=== PATIENT | female | born 1995 | race Caucasian/White ===

== ENCOUNTER 2016-10-10 13:05 | Emergency (ER) | payer OTHER ==
--- NOTE | 2016-10-10 13:49 | DIAGNOSTIC IMAGING REPORT ---
PROCEDURE: XR CHEST 2 VIEW INDICATION: CHEST PAIN TECHNIQUE: PA and lateral views. COMPARISON: None. FINDINGS: Lungs are clear. Heart and mediastinum are normal. Thorax is normal. IMPRESSION: 1. Negative chest.
--- NOTE | 2016-10-10 14:39 | ED NURSING NOTES ---
Clinical Report - Nurses [facility] [place] [address] 10/10/2016 13:09 Patient: AZALIA SHARIF TRIAGE Triage time 13:15 Oct 10 2016. Acuity: LEVEL 3. Chief Complaint: CHEST PAIN and DISCOMFORT. Alert. DANA COMA SCORE: [place] Coma Scale: 15- eyes open spontaneously (4); best verbal response- oriented x 4 (5); best motor response- obeys commands (6). --13:29 Florencio Rivas R.N. 13:18 10/10/16. BP: 121/64. HR: 84. RR: 16. O2 saturation: 96% on room air. Temp: 99.4 F. Pain level now: 01/09. Additional comments: (L) Side of the chest. --13:29 Florencio Rivas R.N. Weight: 70.3 kg stated. Height/Length: 64 inches Per Patient. BMI: 26.6. --13:18 Florencio Rivas R.N. Medications Ibuprofen Oral, as needed. Tylenol Oral, as needed. --13:24 Florencio Rivas R.N. Allergies No Known Drug Allergy. --13:24 Florencio Rivas R.N. Medication/allergy information source: the patient. --13:29 Florencio Rivas R.N. History Arrived by private vehicle. Historian: patient. Accompanied by family. Primary physician (Leilani Martin). ( Chest Pain located on the (L) side of the chest. Pain is described as intermittent and worse when she tries to lift something.). This started today. Onset. (about 6 hours ago). PAST MEDICAL HX: Negative. Immunizations: up-to-date. Last normal menstrual period was 1 week ago. SOCIAL HX: No infectious disease exposure. ABUSE ASSESSMENT: No report of abuse. FALL RISK ASSESSMENT: Fall risk assessment completed. No fall risk identified. NUTRITIONAL RISK ASSESSMENT: The nutritional risk assessment revealed no deficiencies. FUNCTIONAL ASSESSMENT: Functional assessment: no impairments noted. LEARNING NEEDS ASSESSMENT: The learning needs assessment revealed no barriers. SKIN INTEGRITY ASSESSMENT: Skin integrity risk assessment completed. No skin integrity risk identified. --13:29 Florencio Rivas R.N. SOCIAL HX: History of occasional drug use: marijuana. No alcohol use. --13:33 Florencio Rvias R.N. SOCIAL HX: Never smoker. Alcohol use; consumes one liquor. (about once every two months). --14:30 Florencio Rivas R.N. PROBLEMS: Migraine Headache. --13:32 Florencio Rivas R.N. ADDITIONAL SURGERIES: . --13:25 Florencio Rivas R.N. Interventions ID band on patient. To treatment room. --13:29 Florencio Rivas R.N. PHYSICAL ASSESSMENT Ambulatory to room. GENERAL / NEURO / PSYCH: Alert. Oriented X 4. HEENT: Mucous membranes are pink. RESPIRATORY: Respirations not labored. CVS: Normal sinus rhythm noted. GI / : Abdomen soft. EXTREMITIES: No lower extremity edema. SKIN: Skin is warm and dry. Normal skin turgor. --13:31 Florencio Rivas R.N. NURSING PROGRESS NOTES Patient gowned. Reassurance given. Patient identifiers checked. Call light placed in reach. Side rails up x 1. Bed placed in lowest position. Brakes of bed on. Patient ready for evaluation- chart flagged and PA notified. --13:32 Florencio Rivas R.N. EKG time: (13:18). EKG was performed by a tech and shown to the PA. --13:41 Tonie Yeung 13:25. ( POC urine preg--neg). --13:57 Florencio Rivas R.N. 13:30. Patient walked to radiology with tech. --13:58 Florencio Rivas R.N. 13:40. Patient walked back to ED from radiology with tech. --13:59 Florencio Rivas R.N. 14:30 10/10/16. BP: 108/70. HR: 80. RR: 16. O2 saturation: 99% on room air. --14:36 Florencio Rivas R.N. 14:43 10/10/2016 Motrin PO 800 mg given. Allergies verified and confirmed 5 rights. --14:43 Bakari Anderson R.N. DISPOSITION / DISCHARGE 14:46 10/10/16. Condition at departure: improved. The goals identified in the patient's plan of care were met. No learning barriers present. Discharge instructions provided and reviewed with the patient and spouse. Reviewed warnings. Reviewed medication(s). Treatments reviewed. Patient and spouse verbalized understanding. Written instructions provided in Japanese. The patient was discharged by the physician assistant professor of archaeology. She was discharged home and accompanied by family. She left the Emergency Department ambulatory and via private vehicle. Family member driving. FALL RISK ASSESSMENT: Fall risk assessment completed. No fall risk identified. --14:46 Bakari Anderson R.N. 14:45 10/10/16. BP: 112/72. HR: 72. RR: 14. O2 saturation: 99% on room air. Temp: 98.1 F (oral). --14:46 Bakari Anderson R.N. 14:46 10/10/16. Departure time: 14:46. --14:46 Bakari Anderson R.N. Locked/Released at 10/10/2016 14:48 by Bakari Anderson R.N.
--- NOTE | 2016-10-10 14:39 | ED ORDER SUMMARY ---
..... Patient: AZALIA SHARIF OrderSheet [facility] VisitID: [id number] [place] [address] 21y, F Registration Date/Time: 10/10/2016 ORDER SHEET Weight: 70.3 kg (stated) Allergies: No Known Drug Allergy GENERAL ORDERS: EKG - ER Stat (13:18 10/10/2016 Aime R.N. verbal order read back to Tiffanie LYLE) (13:18 JRomanelli R.N.) Chest 2V Urgent (13:35 10/10/2016 EKoroleva P.A.-C) (Ack 13:36 Nitishrkristian) (14:03 omanelli R.N.) POC - Urine hCG (13:35 10/10/2016 EKoroleva P.A.-C) (Ack 13:36 Felicity) (14:03 omanelli R.N.) MEDICATION ORDERS: Motrin PO 800 mg (NOW) (14:31 10/10/2016 EKoroleva P.A.-C) (Ack 14:41 BRIDGEToardley R.N.) (14:43 JBoardley R.N.) IV FLUIDS: ORDER SHEET NOTES: [Electronically signed by Bakari Anderson R.N. (14:48 10/10/2016)] [Electronically signed by Lenka Alejandro P.A.-C (16:09 10/10/2016)] [Electronically locked/signed by Bakari Anderson R.N. (14:48 10/10/2016)]
--- NOTE | 2016-10-10 14:39 | ED NURSING NOTES ---
Clinical Report - Nurses [facility] [place] [address] 10/10/2016 13:09 Patient: AZALIA SHARIF TRIAGE Triage time 13:15 Oct 10 2016. Acuity: LEVEL 3. Chief Complaint: CHEST PAIN and DISCOMFORT. Alert. DANA COMA SCORE: [place] Coma Scale: 15- eyes open spontaneously (4); best verbal response- oriented x 4 (5); best motor response- obeys commands (6). --13:29 Florencio Rivas R.N. 13:18 10/10/16. BP: 121/64. HR: 84. RR: 16. O2 saturation: 96% on room air. Temp: 99.4 F. Pain level now: 01/09. Additional comments: (L) Side of the chest. --13:29 Florencio Rivas R.N. Weight: 70.3 kg stated. Height/Length: 64 inches Per Patient. BMI: 26.6. --13:18 Florencio Rivas R.N. Medications Ibuprofen Oral, as needed. Tylenol Oral, as needed. --13:24 Florencio Rivas R.N. Allergies No Known Drug Allergy. --13:24 Florencio Rivas R.N. Medication/allergy information source: the patient. --13:29 Florencio Rivas R.N. History Arrived by private vehicle. Historian: patient. Accompanied by family. Primary physician (Leilani Martin). ( Chest Pain located on the (L) side of the chest. Pain is described as intermittent and worse when she tries to lift something.). This started today. Onset. (about 6 hours ago). PAST MEDICAL HX: Negative. Immunizations: up-to-date. Last normal menstrual period was 1 week ago. SOCIAL HX: No infectious disease exposure. ABUSE ASSESSMENT: No report of abuse. FALL RISK ASSESSMENT: Fall risk assessment completed. No fall risk identified. NUTRITIONAL RISK ASSESSMENT: The nutritional risk assessment revealed no deficiencies. FUNCTIONAL ASSESSMENT: Functional assessment: no impairments noted. LEARNING NEEDS ASSESSMENT: The learning needs assessment revealed no barriers. SKIN INTEGRITY ASSESSMENT: Skin integrity risk assessment completed. No skin integrity risk identified. --13:29 Florencio Rivas R.N. SOCIAL HX: History of occasional drug use: marijuana. No alcohol use. --13:33 Florencio Rivas R.N. SOCIAL HX: Never smoker. Alcohol use; consumes one liquor. (about once every two months). --14:30 Florencio Rivas R.N. PROBLEMS: Migraine Headache. --13:32 Florencio Rivas R.N. ADDITIONAL SURGERIES: . --13:25 Florencio Rivas R.N. Interventions ID band on patient. To treatment room. --13:29 Florencio Rivas R.N. PHYSICAL ASSESSMENT Ambulatory to room. GENERAL / NEURO / PSYCH: Alert. Oriented X 4. HEENT: Mucous membranes are pink. RESPIRATORY: Respirations not labored. CVS: Normal sinus rhythm noted. GI / : Abdomen soft. EXTREMITIES: No lower extremity edema. SKIN: Skin is warm and dry. Normal skin turgor. --13:31 Florencio Rivas R.N. NURSING PROGRESS NOTES Patient gowned. Reassurance given. Patient identifiers checked. Call light placed in reach. Side rails up x 1. Bed placed in lowest position. Brakes of bed on. Patient ready for evaluation- chart flagged and PA notified. --13:32 Florencio Rivas R.N. EKG time: (13:18). EKG was performed by a tech and shown to the PA. --13:41 Tonie Yeung 13:25. ( POC urine preg--neg). --13:57 Florencio Rivas R.N. 13:30. Patient walked to radiology with tech. --13:58 Florencio Rivas R.N. 13:40. Patient walked back to ED from radiology with tech. --13:59 Florencio Rivas R.N. 14:30 10/10/16. BP: 108/70. HR: 80. RR: 16. O2 saturation: 99% on room air. --14:36 Florencio Rivas R.N. 14:43 10/10/2016 Motrin PO 800 mg given. Allergies verified and confirmed 5 rights. --14:43 Bakari Anderson R.N. DISPOSITION / DISCHARGE 14:46 10/10/16. Condition at departure: improved. The goals identified in the patient's plan of care were met. No learning barriers present. Discharge instructions provided and reviewed with the patient and spouse. Reviewed warnings. Reviewed medication(s). Treatments reviewed. Patient and spouse verbalized understanding. Written instructions provided in Haitian. The patient was discharged by the physician car rental sales assistant. She was discharged home and accompanied by family. She left the Emergency Department ambulatory and via private vehicle. Family member driving. FALL RISK ASSESSMENT: Fall risk assessment completed. No fall risk identified. --14:46 Bakari Anderson R.N. 14:45 10/10/16. BP: 112/72. HR: 72. RR: 14. O2 saturation: 99% on room air. Temp: 98.1 F (oral). --14:46 Bakari Anderson R.N. 14:46 10/10/16. Departure time: 14:46. --14:46 Bakari Anderson R.N. Locked/Released at 10/10/2016 14:48 by Bakari Anderson R.N.
--- NOTE | 2016-10-10 14:39 | ED CLINICAL REPORT ---
Clinical Report - Physicians/Mid Levels [facility] [address] [place] [address] 10/10/2016 13:09 Patient: AZALIA SHARIF Time Seen: 13:34 Oct 10 2016. Arrived- By private vehicle. Historian- patient. HISTORY OF PRESENT ILLNESS Chief Complaint: CHEST PAIN. It is described as located in the central chest area. This started 7 am after picking up her kid and is still present. No nausea or difficulty breathing. (Patient reports central pain, Worse with any movement, especially leaning forward. Denies any fevers or chills or cough. Reports worse with movement of her left arm. Denies current . Patient is 11 months . Denies recent illness. Denies any nausea or vomiting. Denies history of similar pain.). Similar symptoms previously: None. Recent medical care: Not recently seen/assessed. REVIEW OF SYSTEMS No chills, cough, pedal edema, sore throat or abdominal pain. All systems otherwise negative, except as recorded above. PAST HISTORY Problems: Migraine Headache. Additional Surgeries: . Medications: Ibuprofen Oral, as needed. Tylenol Oral, as needed. Allergies: No Known Drug Allergy. SOCIAL HISTORY Never smoker. No alcohol use. ADDITIONAL NOTES The nursing notes have been reviewed. PHYSICAL EXAM Vital Signs: 10/10/2016 13:18 BP: 121/64. HR: 84. RR: 16. O2 saturation: 96%. Temp: 99.4 F. Pain level now: 7/10. Appearance: Alert. Eyes: Eyes normal inspection. ENT: Pharynx normal. Neck: Normal inspection. CVS: Normal heart rate and rhythm. Heart sounds normal. Pulses normal. No cardiac murmur. Respiratory: No respiratory distress. Breath sounds normal. No accessory muscle use or chest pain reproduced on physical exam. Abdomen: Soft and nontender. Bowel sounds normal. No abdominal tenderness. The bowel sounds are not abnormal. Skin: Skin warm. Normal skin color. Neuro: Oriented X 3. LABS, X-RAYS, AND EKG EKG: EKG time: (1318). No acute process. No acute ischemia. Normal EKG. Rate: 73. Normal P waves. Normal JADYN. Normal QRS complex. Normal axis. Normal ST and T waves and QT. The study has been interpreted contemporaneously. The study has been independently viewed by me. The EKG appears to be a good tracing. Chest X-ray: (IMPRESSION: 1. Negative chest. Electronically Final signed by:Usman Barron MD 10/10/2016 1:49:10 PM). PROGRESS AND PROCEDURES Course of Care: Patient here in the ER stable. PERC/ Wells as well as criteria are negative. Patient with no shortness of breath. Pain reproducible. Very stable. No lower extremity swelling. No recent illness. 10/10/2016 14:45 BP: 112/72. HR: 72. RR: 14. O2 saturation: 99%. Temp: 98.1 F. Patient is stable. Physical exam findings are improved. Symptoms better. Patient/family counseled. Differential Diagnosis: I considered muscle strain, pleurisy, intercostal neuritis, myocardial infarction, intermediate coronary syndrome, aortic dissection, pulmonary embolism and pneumonia as a possible cause of chest pain in this patient. This is a partial list of diagnoses considered. Disposition: Discharged. Condition: good. CLINICAL IMPRESSION Atypical chest pain Chest wall pain INSTRUCTIONS Avoid stimulants (such as cigarettes, coffee, cold medicines, sinus medicines, street drugs). Warnings: Further evaluation is necessary. Prescription Medications: Ibuprofen 800 mg tablets: take 1 tablet orally for 3 days, as needed for pain. Dispense fifteen (15). No refill. Follow-up: Follow up with your doctor in three days. (Electronically signed by Lenka Alejandro P.A.-C 10/10/2016 16:09)
--- NOTE | 2016-10-10 14:39 | ED ORDER SUMMARY ---
..... Patient: AZALIA SHARIF OrderSheet [facility] VisitID: [id number] [place] [address] 21y, F Registration Date/Time: 10/10/2016 ORDER SHEET Weight: 70.3 kg (stated) Allergies: No Known Drug Allergy GENERAL ORDERS: EKG - ER Stat (13:18 10/10/2016 Aime R.N. verbal order read back to Tiffanie LYLE) (13:18 JRomanelli R.N.) Chest 2V Urgent (13:35 10/10/2016 EKoroleva P.A.-C) (Ack 13:36 Nitishrkristian) (14:03 omanelli R.N.) POC - Urine hCG (13:35 10/10/2016 EKoroleva P.A.-C) (Ack 13:36 Felicity) (14:03 omanelli R.N.) MEDICATION ORDERS: Motrin PO 800 mg (NOW) (14:31 10/10/2016 EKoroleva P.A.-C) (Ack 14:41 BRIDGEToardley R.N.) (14:43 JBoardley R.N.) IV FLUIDS: ORDER SHEET NOTES: [Electronically signed by Bakari Anderson R.N. (14:48 10/10/2016)] [Electronically signed by Lenka Alejandro P.A.-C (16:09 10/10/2016)] [Electronically locked/signed by Bakari Anderson R.N. (14:48 10/10/2016)]
--- NOTE | 2016-10-10 16:09 | ED MED RECONCILIATION SUMMARY ---
Patient: AZALIA SHARIF Medication Reconciliation Report [facility] VisitID: [id number] [address] [place] [address] 21y, F Registration Date/Time: 10/10/2016 Weight: 70.3 kg Height/Length: 64 in. BMI: 26.6 ALLERGIES: No Known Drug Allergy The patient's Home Medications are listed below: THE FOLLOWING MEDICATIONS NEED TO BE RECONCILED: Ibuprofen Oral Tylenol Oral The source(s) of the original Home Medication information: patient The following Medications were given to the patient in the Emergency Department: Motrin [PO] PO 800 mg, administered: 10/10/2016 2:43:00 PM The following Medications were prescribed to the patient: Ibuprofen 800 mg tablets: take 1 tablet orally for 3 days, as needed for pain. Dispense fifteen (15). No refill. -- Lenka Alejandro, PKristaAMarkieC
--- NOTE | 2016-10-10 16:09 | ED MED RECONCILIATION SUMMARY ---
Patient: AZALIA SHARIF Medication Reconciliation Report [facility] VisitID: [id number] [address] [place] [address] 21y, F Registration Date/Time: 10/10/2016 Weight: 70.3 kg Height/Length: 64 in. BMI: 26.6 ALLERGIES: No Known Drug Allergy The patient's Home Medications are listed below: THE FOLLOWING MEDICATIONS NEED TO BE RECONCILED: Ibuprofen Oral Tylenol Oral The source(s) of the original Home Medication information: patient The following Medications were given to the patient in the Emergency Department: Motrin [PO] PO 800 mg, administered: 10/10/2016 2:43:00 PM The following Medications were prescribed to the patient: Ibuprofen 800 mg tablets: take 1 tablet orally for 3 days, as needed for pain. Dispense fifteen (15). No refill. -- Lenka Alejandro, PKristaAMarkeiC
--- NOTE | 2016-10-10 16:09 | ED MAR SUMMARY ---
..... Medication Administration Record [facility] [address] [place] [address] Patient: AZALIA SHARIF Visit ID: [id number] 21y, F Weight: 70.3 kg Height/Length: 64 in BMI: 26.6 ALLERGIES: No Known Drug Allergy Given 14:43 10/10/2016 Bakari Anderson R.N. Medication Administered: MOTRIN [PO], Dose: 800 mg PO. Medication Ordered: Motrin PO 800 mg (NOW).
--- NOTE | 2016-10-10 16:09 | ED DISCHARGE INSTRUCTIONS ---
Patient: AZALIA SHARIF General Instructions [facility] VisitID: [id number] [place] [address] 21y, F Registration Date/Time: 10/10/2016 Atypical chest pain Chest wall pain INSTRUCTIONS Avoid stimulants (such as cigarettes, coffee, cold medicines, sinus medicines, street drugs). Warnings: Further evaluation is necessary. Prescription Medications: Ibuprofen 800 mg tablets: take 1 tablet orally for 3 days, as needed for pain. Dispense fifteen (15). No refill. Follow-up: Follow up with your doctor in three days. ADDITIONAL INFORMATION Chest Pain, Noncardiac Based on your visit today, the exact cause of your chest pain is not certain. Your condition does not seem serious and your pain does not appear to be coming from your heart. However, sometimes the signs of a serious problem take more time to appear. Therefore, please watch for the warning signs listed below. Home Care: Rest today and avoid strenuous activity. Take any prescribed medicine as directed. Follow Up with your doctor or this facility as instructed or if you do not start to feel better within 24 hours. Get Prompt Medical Attention if any of the following occur: A change in the type of pain: if it feels different, becomes more severe, lasts longer, or begins to spread into your shoulder, arm, neck, jaw or back Shortness of breath or increased pain with breathing Cough with dark colored sputum (phlegm) or blood Weakness, dizziness, or fainting Fever of 100.4F (38C) or higher, or as directed by your healthcare provider Swelling, pain or redness in one leg Chest Pain, Uncertain Cause Chest pain can happen for a number of reasons. Sometimes the cause can not be determined. If yourcondition does not seem serious, and your pain does not appear to be coming from your heart, your doctor may recommend watching it closely. Sometimes the signs of a serious problem take more time to appear. Therefore, watch for the warning signs listed below. Home care After your visit, follow these recommendations: Rest today and avoid strenuous activity. Take any prescribed medicine as directed. Follow-up care Follow up with your doctor or this facility as instructed or if you do not start to feel better within 24 hours. Call 911 Get immediate medical attention if any of the following occur: A change in the type of pain: if it feels different, becomes more severe, lasts longer, or begins to spread into your shoulder, arm, neck, jaw or back Shortness of breath or increased pain with breathing Weakness, dizziness, or fainting Rapid heart beat Get prompt medical attention Call your doctor right away if any of the following occur: Cough with dark colored sputum (phlegm) or blood Fever of 100.4F(38C) or higher, or as directed by your health care provider Swelling, pain or redness in one leg Chest Wall Pain: Costochondritis The chest pain that you have had today is caused by Costochondritis. This condition is due to an inflammation of the cartilage joining the ribs to the breastbone. It is not caused by heart or lung problems. Although the exact cause for costochondritis is not known, it often occurs during times of emotional stress. It can be painful, but it is not dangerous. It usually disappears within one to two weeks, but may recur. Rarely, a more serious condition may cause symptoms similar to costochondritis; therefore, watch for the warning signs listed below. Home Care: If you feel that emotional stress is a cause of your condition, try to identify sources of that stress. It may not be obvious! Learn ways to deal with the stress in your life such as regular exercise, muscle relaxation, meditation, or simply taking time out for yourself. For more information about this, consult your doctor or go to a local bookstore and review books and tapes available on the subject of stress reduction. You may use acetaminophen (Tylenol) or ibuprofen (Motrin, Advil) to control pain, unless another pain medicine was prescribed. [ NOTE: If you have liver disease or ever had a stomach ulcer, talk with your doctor before using these medicines.] The use of heat (hot wet compress or heating pad) with or without local analgesic creams (Deep Heat Rub, Sam Carl) will be helpful to reduce pain. Follow Up with your doctor as directed or sooner if you do not start to improve within the next two days. Get Prompt Medical Attention if any of the following occur: A change in the type of pain: if it feels different, becomes more severe, lasts longer, or spreads into your shoulder, arm, neck, jaw or back Shortness of breath or increased pain with breathing Weakness, dizziness, or fainting Cough with dark colored sputum (phlegm) or blood Abdominal pain Dark red or black stools Fever of 100.4F (38C) or higher, or as directed by your healthcare provider You have been given the following additional information: Chest Pain, Noncardiac Chest Pain, Uncertain Cause Chest Wall Pain, Costochondritis (Electronically signed by Lenka Alejandro P.A.-C 10/10/2016 16:09)
--- NOTE | 2016-10-10 16:09 | ED MAR SUMMARY ---
..... Medication Administration Record [facility] [address] [place] [place] [address] Patient: AZALIA SHARIF Visit ID: [id number] 21y, F Weight: 70.3 kg Height/Length: 64 in BMI: 26.6 ALLERGIES: No Known Drug Allergy Given 14:43 10/10/2016 Bakari Anderson R.N. Medication Administered: MOTRIN [PO], Dose: 800 mg PO. Medication Ordered: Motrin PO 800 mg (NOW).
== END 2016-10-10 14:46 | disposition home or self-care (01) ==
LOC: ED SRH 13:05
DX: R07.89 Other chest pain (principal)